=== PATIENT | female | born 1975 | race Caucasian/White ===

== ENCOUNTER 2019-08-28 08:54 | Emergency (ER) | payer BC ==
[2019-08-28] MEDS ORDERED: Morphine 4 MG/ML Syringe IVPUSH ONE (09:06)
[2019-08-28] MEDS ORDERED: Ondansetron 4 MG/2 ML SDV IVPUSH ONE (09:06)
[2019-08-28] MEDS ORDERED: Sodium Chloride 0.9% 2.5 ML Syringe FLUSH PRN (09:06)
[2019-08-28] MEDS ORDERED: Sodium Chloride 0.9% 10 ML Syringe FLUSH PRN (09:06)
[2019-08-28] MEDS ORDERED: Lactated Ringers 1,000 ML IV ONE (09:06)
--- NOTE | 2019-08-28 09:25 | EDM.PDOC ---
ED HPI GENERAL MEDICAL PROBLEM - General Chief Complaint: Flank Pain Stated Complaint: PAIN AROUND KIDNEY'S Time Seen by Provider: 08/28/19 09:00 Source of Information: Reports: Patient History Limitations: Reports: No Limitations - History of Present Illness INITIAL COMMENTS - FREE TEXT/NARRATIVE: 43-year-old female presents with abdominal pain. She complains of diffuse abdom inal "bloaty "discomfort for the last 2 weeks, associated with nonbilious, nonbloody vomiting. She started developing bilateral flank pain over the last couple days. She denies fever, chills, diarrhea. She was last sexually active in January. Her LMP was in January. ROS: A 10-point review of systems, other than pertinent positives and negatives as stated per HPI, is otherwise negative PHYSICAL EXAM General: AOx4, GCS = 15, No distress HEENT: dry mucous membrane Neck: supple, no meningismus, no Kernig or Brudzinski Cardiac: S1S2 RRR Respiratory: CTAB, no crackles or rales, no wheezing Abdomen: Soft, mild diffuse ttp. no rebound or guarding, nondistended, no pulsatile mass. Back: mild CVAT Bilateral. Musculoskeletal: NVI distally, no deformity Neuro: No focal deficits, CN 2 - 12 WNL. Left Flank Pain Score (Numeric/FACES): 3 - Related Data Allergies Allergy/AdvReac Type Severity Reaction Status Date / Time No Known Allergies Allergy Verified 11/07/16 22:43 Home Meds: Home Meds . 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 SENIOR GENETIC COUNSELOR History: x 1 - Infectious Disease History Infectious Disease History: Reports: Chicken Pox - Past Surgical History HEENT Surgical History: Reports: Tonsillectomy Dermatological Surgical History: Reports: Other (See Below) Social & Family History - Family History Family Medical History: Noncontributory Cardiac: Reports: High Cholesterol, Hypertension Endocrine/Metabolic: Reports: Diabetes, Type I - Tobacco Use Smoking Status *Q: Never Smoker - Caffeine Use Caffeine Use: Reports: None - Recreational Drug Use Recreational Drug Use: No ED ROS GENERAL - Review of Systems Review Of Systems: Comprehensive ROS is negative, except as noted in HPI. ED EXAM, GENERAL - Physical Exam Exam: See Below (see dictation) Course - Vital Signs Last Recorded V/S: Last Vital Signs Temp 97.0 F 08/28/19 09:11 Pulse 113 H 08/28/19 14:53 Resp 16 08/28/19 14:53 BP 135/78 08/28/19 14:53 Pulse Ox 96 08/28/19 14:53 - Orders/Labs/Meds Orders: Active Orders 24 hr Category Date Time Status Sodium Chloride 0.9% [Saline Flush] Med 08/28/19 09:06 Active 10 ml FLUSH ASDIRECTED PRN Sodium Chloride 0.9% [Saline Flush] Med 08/28/19 09:06 Active 2.5 ml FLUSH ASDIRECTED PRN Saline Lock Insert [OM.PC] Stat Oth 08/28/19 09:07 Ordered Medication Orders Sodium Chloride (Saline Flush) 10 ml FLUSH ASDIRECTED PRN PRN Reason: Keep Vein Open Sodium Chloride (Saline Flush) 2.5 ml FLUSH ASDIRECTED PRN PRN Reason: Keep Vein Open Labs: Laboratory Tests 08/28/19 08/28/19 08/28/19 Range/Units 09:35 09:35 09:35 WBC 14.46 H (4.0-11.0) K/uL RBC 4.33 (4.30-5.90) M/uL Hgb 13.5 (12.0-16.0) g/dL Hct 41.1 (36.0-46.0) % MCV 94.9 (80.0-98.0) fL MCH 31.2 (27.0-32.0) pg MCHC 32.8 (31.0-37.0) g/dL RDW Std Deviation 46.9 (28.0-62.0) fl RDW Coeff of Cinda 13 (11.0-15.0) % Plt Count 270 (150-400) K/uL MPV 11.00 (7.40-12.00) fL Neut % (Auto) 74.0 (48.0-80.0) % Lymph % (Auto) 19.6 (16.0-40.0) % [place] % (Auto) 5.9 (0.0-15.0) % Eos % (Auto) 0.4 (0.0-7.0) % Baso % (Auto) 0.1 (0.0-1.5) % Neut # (Auto) 10.7 H (1.4-5.7) K/uL Lymph # (Auto) 2.8 H (0.6-2.4) K/uL [place] # (Auto) 0.9 H (0.0-0.8) K/uL Eos # (Auto) 0.1 (0.0-0.7) K/uL Baso # (Auto) 0.0 (0.0-0.1) K/uL Nucleated RBC % 0.0 /100WBC Nucleated RBCs # 0 K/uL Sodium (136-145) mmol/L Potassium (3.5-5.1) mmol/L Chloride (98-107) mmol/L Carbon Dioxide (21.0-32.0) mmol/L BUN (7.0-18.0) mg/dL Creatinine (0.6-1.0) mg/dL Est Cr Clr Drug Dosing mL/min Estimated GFR (MDRD) ml/min Glucose (74-106) mg/dL Calcium (8.5-10.1) mg/dL Total Bilirubin (0.2-1.0) mg/dL AST (15-37) IU/L ALT (14-63) IU/L Alkaline Phosphatase (46-116) U/L Total Protein (6.4-8.2) g/dL Albumin (3.4-5.0) g/dL Globulin (2.6-4.0) g/dL Albumin/Globulin Ratio (0.9-1.6) Lipase (73-393) U/L HCG, Quant mIU/mL Urine Color YELLOW Urine Appearance CLEAR Urine pH 6.5 (5.0-8.0) Ur Specific [place] 1.025 (1.001-1.035) Urine Protein NEGATIVE (NEGATIVE) mg/dL Urine Glucose (UA) NEGATIVE (NEGATIVE) mg/dL Urine Ketones NEGATIVE (NEGATIVE) mg/dL Urine Occult Blood NEGATIVE (NEGATIVE) Urine Nitrite NEGATIVE (NEGATIVE) Urine Bilirubin NEGATIVE (NEGATIVE) Urine Urobilinogen 0.2 (<2.0) EU/dL Ur Leukocyte Esterase TRACE H (NEGATIVE) Urine RBC 0-1 (0-2/HPF) Urine WBC 0-2 (0-5/HPF) Ur Epithelial Cells FEW (NONE-FEW) Amorphous Sediment LIGHT (NEGATIVE) Urine Bacteria FEW (NEGATIVE) Urine Mucus LIGHT (NONE-MOD) Urine HCG, Qual POSITIVE (NEGATIVE) 08/28/19 08/28/19 Range/Units 10:14 10:14 WBC (4.0-11.0) K/uL RBC (4.30-5.90) M/uL Hgb (12.0-16.0) g/dL Hct (36.0-46.0) % MCV (80.0-98.0) fL MCH (27.0-32.0) pg MCHC (31.0-37.0) g/dL RDW Std Deviation (28.0-62.0) fl RDW Coeff of Cinda (11.0-15.0) % Plt Count (150-400) K/uL MPV (7.40-12.00) fL Neut % (Auto) (48.0-80.0) % Lymph % (Auto) (16.0-40.0) % [place] % (Auto) (0.0-15.0) % Eos % (Auto) (0.0-7.0) % Baso % (Auto) (0.0-1.5) % Neut # (Auto) (1.4-5.7) K/uL Lymph # (Auto) (0.6-2.4) K/uL [place] # (Auto) (0.0-0.8) K/uL Eos # (Auto) (0.0-0.7) K/uL Baso # (Auto) (0.0-0.1) K/uL Nucleated RBC % /100WBC Nucleated RBCs # K/uL Sodium 137 (136-145) mmol/L Potassium 4.1 (3.5-5.1) mmol/L Chloride 104 (98-107) mmol/L Carbon Dioxide 23.9 (21.0-32.0) mmol/L BUN 6 L (7.0-18.0) mg/dL Creatinine 0.6 (0.6-1.0) mg/dL Est Cr Clr Drug Dosing 97.59 mL/min Estimated GFR (MDRD) > 60.0 ml/min Glucose 96 (74-106) mg/dL Calcium 9.8 (8.5-10.1) mg/dL Total Bilirubin 0.2 (0.2-1.0) mg/dL AST 16 (15-37) IU/L ALT 21 (14-63) IU/L Alkaline Phosphatase 79 (46-116) U/L Total Protein 6.2 L (6.4-8.2) g/dL Albumin 2.5 L (3.4-5.0) g/dL Globulin 3.7 (2.6-4.0) g/dL Albumin/Globulin Ratio 0.7 L (0.9-1.6) Lipase 71 L (73-393) U/L HCG, Quant 11794.0 mIU/mL Urine Color Urine Appearance Urine pH (5.0-8.0) Ur Specific [place] (1.001-1.035) Urine Protein (NEGATIVE) mg/dL Urine Glucose (UA) (NEGATIVE) mg/dL Urine Ketones (NEGATIVE) mg/dL Urine Occult Blood (NEGATIVE) Urine Nitrite (NEGATIVE) Urine Bilirubin (NEGATIVE) Urine Urobilinogen (<2.0) EU/dL Ur Leukocyte Esterase (NEGATIVE) Urine RBC (0-2/HPF) Urine WBC (0-5/HPF) Ur Epithelial Cells (NONE-FEW) Amorphous Sediment (NEGATIVE) Urine Bacteria (NEGATIVE) Urine Mucus (NONE-MOD) Urine HCG, Qual (NEGATIVE) Meds: Medications Generic Name Dose Route Start Last Admin Trade Name Freq PRN Reason Stop Dose Admin Sodium Chloride 10 ml 08/28/19 09:06 Saline Flush FLUSH ASDIRECTED PRN Keep Vein Open Sodium Chloride 2.5 ml 08/28/19 09:06 Saline Flush FLUSH ASDIRECTED PRN Keep Vein Open Discontinued Medications Generic Name Dose Route Start Last Admin Trade Name Freq PRN Reason Stop Dose Admin Lactated Ringer's 1,000 mls @ 999 mls/hr 08/28/19 09:06 08/28/19 09:33 Ringers, Lactated IV 07/03/20 10:06 999 mls/hr .BOLUS ONE Administration Morphine Sulfate 4 mg 08/28/19 09:06 08/28/19 09:33 Morphine IVPUSH 08/28/19 09:07 4 mg ONETIME ONE Administration Ondansetron HCl 4 mg 08/28/19 09:06 08/28/19 09:33 Zofran IVPUSH 08/28/19 09:07 4 mg ONETIME ONE Administration - Re-Assessments/Exams Free Text/Narrative Re-Assessment/Exam: 08/28/19 14:54 Case discussed with of [facility], will order NST exam for her to determine disposition 08/28/19 15:04 OB team in the ER to get the patient to OB for NST exam. Departure - Departure Disposition: Home, Self-Care 01 Condition: Good Clinical Impression: Oligohydramnios, Third trimester - Discharge Information *PRESCRIPTION DRUG MONITORING PROGRAM REVIEWED*: Not Applicable *COPY OF PRESCRIPTION DRUG MONITORING REPORT IN PATIENT CECELIA: Not Applicable Instructions: Third Trimester of , [id number] Referrals: Brandon Haji MD [Primary Care Provider] - Forms: ED Department Discharge Additional Instructions: The following information is given to patients seen in the emergency department who are being discharged to home. This information is to outline your options for follow-up care. We provide all patients seen in our emergency department with a follow-up referral. The need for follow-up, as well as the timing and circumstances, are variable depending upon the specifics of your emergency department visit. If you don't have a primary care physician on staff, we will provide you with a referral. We always advise you to contact your personal physician following an emergency department visit to inform them of the circumstance of the visit and for follow-up with them and/or the need for any referrals to a consulting specialist. The emergency department will also refer you to a specialist when appropriate. This referral assures that you have the opportunity for follow-up care with a specialist. All of these measure are taken in an effort to provide you with optimal care, which includes your follow-up. Under all circumstances we always encourage you to contact your private physician who remains a resource for coordinating your care. When calling for follow-up care, please make the office aware that this follow-up is from your recent emergency room visit. If for any reason you are refused follow-up, please contact the [facility] Emergency Department at and asked to speak to the emergency department charge nurse. If you do not have a primary care doctor, please follow up with the clinics below within 3-5 days. [facility] [address] [place] [id number] [facility] [address] [place] [address] Sepsis Event Note (ED) - Evaluation Sepsis Screening Result: No Definite Risk - Focused Exam Vital Signs: Vital Signs Temp Pulse Resp BP Pulse Ox 08/28/19 14:53 113 H 16 135/78 96 08/28/19 12:15 96 16 121/70 98 08/28/19 10:17 86 16 115/73 97 08/28/19 09:11 97.0 F 99 18 127/85 100 - My Orders Last 24 Hours: My Active Orders 08/28/19 09:06 Sodium Chloride 0.9% [Saline Flush] 10 ml FLUSH ASDIRECTED PRN Sodium Chloride 0.9% [Saline Flush] 2.5 ml FLUSH ASDIRECTED PRN 08/28/19 09:07 Saline Lock Insert [OM.PC] Stat - Assessment/Plan Last 24 Hours: My Active Orders 08/28/19 09:06 Sodium Chloride 0.9% [Saline Flush] 10 ml FLUSH ASDIRECTED PRN Sodium Chloride 0.9% [Saline Flush] 2.5 ml FLUSH ASDIRECTED PRN 08/28/19 09:07 Saline Lock Insert [OM.PC] Stat
[2019-08-28 10:41] LABS: BLOOD UREA NITROGEN,BUN 6 mg/dL (7.0-18.0); CARBON DIOXIDE,CO2 23.9 mmol/L (21.0-32.0); CHLORIDE,CL 104 mmol/L (98-107); GLUCOSE RANDOM 96 mg/dL (74-106); LIPASE 71 U/L (73-393); POTASSIUM,K 4.1 mmol/L (3.5-5.1); SODIUM,NA 137 mmol/L (136-145)
--- NOTE | 2019-08-28 14:39 | US ---
Obstetrical ultrasound: Multiple real-time images were obtained transabdominally. Comparison: No previous study for current . Dates: Current ultrasound: [facility] 10/30/19, gestational age 31 weeks 0 days presentation: Breech Placenta: Anterior with no findings of placenta previa or abruption Amniotic fluid: EKTA 5.63 cm Anatomic survey: Intracranial: No discrete abnormality Intra-abdominal: No discrete abnormality Spine: No discrete abnormality Extremities: 4 extremities are present Cardiac (4 chamber view, RVOT and LVOT): Within normal limits Aortic arch: Unremarkable Cord insertion: Appears intact Three-vessel cord: Present Diaphragm: Appears intact Upper lip: Appears intact Maternal adnexa: Not evaluated Measurements: BPD: 7.34 cm - 29 weeks 3 days Head circumference: 29.12 cm - 32 weeks 0 days Abdominal circumference: 26.89 cm - 31 weeks 0 days Femur length: 6.08 cm - 31 weeks 4 days Estimated weight: 1713 g (3 lbs. 12 oz.) Heart rate: 125 bpm Impression: 1. Single intrauterine fetus currently breech in presentation. 2. Low amniotic fluid index compatible with oligohydramnios. 3. No other complicating process is appreciated on obstetrical ultrasound exam. Diagnostic code #3 This report was dictated in MDT
--- NOTE | 2019-08-28 14:42 | US ---
Abdominal ultrasound: Multiple real-time images of the abdomen were obtained. Liver is echogenic and mildly enlarged. Findings most likely represent fatty infiltration. Gallbladder contains no shadowing gallstones. No gallbladder wall thickening or biliary duct dilatation is seen. Visualized pancreas is within normal limits. Kidneys show no hydronephrosis or mass. Right kidney has a length of 10.8 cm and left kidney has a length of 11.9 cm. Spleen size is normal. Aorta shows no aneurysm. Inferior vena cava is patent. Impression: 1. Fatty infiltration within the liver. 2. No additional abnormality is appreciated on abdominal ultrasound exam. Diagnostic code #2 This report was dictated in MDT
[2019-08-28 14:54] VITALS: BP 135/78; PULSE 113
== END 2019-08-28 15:10 | disposition still patient (30) ==
LOC: MW.ED 08:54
DX: O41.03X0 Oligohydramnios, third trimester, not applicable or unspecified (principal)
CPT/HCPCS: 36415; 76700; 76805; 80053; 81001; 81025; 83690; 84702; 85025; 96361; 96374; 96375; 99284; J2270; J2405; J7120; 99283

== ENCOUNTER 2019-10-29 07:12 | Inpatient (IN) | payer BC ==
[2019-10-29] MEDS ORDERED: Tranexamic Acid 1,000 MG in Sodium Chloride 0.9% 100 ML IV PRN ×2 (07:30→12:27)
[2019-10-29] MEDS ORDERED: Water For Irrigation,Sterile 1,000 ML Container IRR PRN (07:30)
[2019-10-29] MEDS ORDERED: Methylergonovine 0.2 MG/1 ML Amp IM PRN ×2 (07:30→12:27)
[2019-10-29] MEDS ORDERED: Sodium Chloride 0.9% 10 ML Syringe FLUSH PRN (07:30)
[2019-10-29] MEDS ORDERED: Sodium Chloride 0.9% 10 ML SDV IV PRN (07:30)
[2019-10-29] MEDS ORDERED: Ondansetron 4 MG/2 ML SDV IVPUSH PRN ×2 (07:30→12:27)
[2019-10-29] MEDS ORDERED: Oxytocin/0.9 % Sodium Chloride 30 UNIT/500 ML BAG IV SCH ×2 (07:30→07:45)
[2019-10-29] MEDS ORDERED: Nalbuphine 10 MG/1 ML Vial IVPUSH PRN ×2 (07:30→12:24)
[2019-10-29] MEDS ORDERED: Carboprost Tromethamine 250 MCG/1 ML Amp IM PRN (07:30)
[2019-10-29] MEDS ORDERED: Sodium Chloride 0.9% 2.5 ML Syringe FLUSH PRN (07:30)
[2019-10-29] MEDS ORDERED: Lidocaine 1% 50 ML MDV INJECT PRN (07:30)
[2019-10-29] MEDS ORDERED: Misoprostol 200 MCG Tab PO PRN (07:30)
[2019-10-29] MEDS ORDERED: Terbutaline 1 MG/ML SDV SUBCUT PRN (07:35)
[2019-10-29] MEDS: Lactated Ringers 1,000 ML IV SCH ×2 (07:51→09:15)
[2019-10-29] MEDS ORDERED: Terbutaline 1 MG/ML SDV SUBCUT ONE (10:00)
[2019-10-29] MEDS ORDERED: Misoprostol 25 MCG (1/4 of 100 MCG) Tab VAG PRN ×2 (10:30→14:30)
[2019-10-29] MEDS ORDERED: Misoprostol 25 MCG (1/4 of 100 MCG) Tab PO ONE (10:30)
--- NOTE | 2019-10-29 10:55 | PCM.LDHP ---
L&D History of Present Illness - General Date of Service: 10/29/19 Admit Problem/Dx: Patient Status Order with Admit Dx/Problem 10/29/19 07:31 Patient Status [ADT] Routine Admission Diagnosis/Problem Admission Diagnosis/Problem 10/29/19 10:51 43yo EDC 11/04/2019 39 1/7wks. AMA, Breech will attempt version. A+, RI. GBS neg. Source of Information: Patient History Limitations: Reports: No Limitations - History of Present Illness Improves with: Reports: None Worsens with: Reports: None Associated Symptoms: Reports: N - Related Data Allergies/Adverse Reactions: Allergies Allergy/AdvReac Type Severity Reaction Status Date / Time No Known Allergies Allergy Verified 08/31/19 10:37 Home Medications: Home Meds Vitamin C 1 tab PO DAILY 08/31/19 [History] Vitamin D 1 tab PO DAILY 08/31/19 [History] Past Medical History HEENT History: Reports: Impaired Vision Other HEENT History: wears glasses Cardiovascular History: Reports: Other (See Below) Other Cardiovascular History: pt states heart races sometimes Gastrointestinal History: Reports: GERD 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 OB/BYN History: x 1 Musculoskeletal History: Reports: Other (See Below) Other Musculoskeletal History: Bunion removed from right foot Endocrine/Metabolic History: Reports: Diabetes, Gestational - Infectious Disease History Infectious Disease History: Reports: Chicken Pox - Past Surgical History HEENT Surgical History: Reports: Tonsillectomy GI Surgical History: Reports: None Endocrine Surgical History: Reports: None Dermatological Surgical History: Reports: Other (See Below) Social & Family History - Family History Family Medical History: Noncontributory Cardiac: Reports: High Cholesterol, Hypertension Endocrine/Metabolic: Reports: Diabetes, Type I - Tobacco Use Smoking Status *Q: Never Smoker Second Hand Smoke Exposure: No - Caffeine Use Caffeine Use: Reports: None - Recreational Drug Use Recreational Drug Use: No H&P Review of Systems - Review of Systems: Review Of Systems: See Below General: Reports: No Symptoms HEENT: Reports: No Symptoms Pulmonary: Reports: No Symptoms Cardiovascular: Reports: No Symptoms Gastrointestinal: Reports: No Symptoms Genitourinary: Reports: No Symptoms Musculoskeletal: Reports: No Symptoms Skin: Reports: No Symptoms Psychiatric: Reports: No Symptoms Neurological: Reports: No Symptoms Hematologic/Lymphatic: Reports: No Symptoms Immunologic: Reports: No Symptoms L&D Exam - Exam Exam: See Below - Vital Signs Weight: 88.451 kg - OB Specific Contraction Intensity: Mild Movement: Active Heart Tones: Present Heart Rate (FHR) Variability: Moderate (6-25 bmp) Presentation: Breech Estimated Weight: 3150 - Exam General: Alert, Oriented, Cooperative HEENT: Hearing Intact Lungs: Clear to Auscultation, Normal Respiratory Effort Cardiovascular: Regular Rate, Regular Rhythm GI/Abdominal Exam: Soft, Non-Tender, Pelvis Stable Rectal Exam: Deferred Back Exam: Full Range of Motion Extremities: Normal Inspection, Normal Range of Motion, Non-Tender, No Pedal Edema Skin: Warm, Dry, Intact Neurological: Reflexes Equal Bilateral, Normal Gait, Normal Speech, Normal Tone, Sensation Intact Psychiatric: Alert, Normal Affect, Normal Mood - Patient Data Lab Results Last 24 hrs: Laboratory Results - last 24 hr 10/29/19 10/29/19 10/29/19 Range/Units 07:51 07:51 08:35 WBC 11.96 H (4.0-11.0) K/uL RBC 4.51 (4.30-5.90) M/uL Hgb 14.0 (12.0-16.0) g/dL Hct 42.7 (36.0-46.0) % MCV 94.7 (80.0-98.0) fL MCH 31.0 (27.0-32.0) pg MCHC 32.8 (31.0-37.0) g/dL RDW Std Deviation 51.0 (28.0-62.0) fl RDW Coeff of Cinda 15 (11.0-15.0) % Plt Count 254 (150-400) K/uL MPV 10.60 (7.40-12.00) fL Nucleated RBC % 0.0 /100WBC Nucleated RBCs # 0 K/uL POC Glucose (60-110) mg/dL COVID-19 (ABDI) NEGATIVE (NEGATIVE) Blood Type A POSITIVE Antibody Screen NEGATIVE 10/29/19 Range/Units 10:09 WBC (4.0-11.0) K/uL RBC (4.30-5.90) M/uL Hgb (12.0-16.0) g/dL Hct (36.0-46.0) % MCV (80.0-98.0) fL MCH (27.0-32.0) pg MCHC (31.0-37.0) g/dL RDW Std Deviation (28.0-62.0) fl RDW Coeff of Cinda (11.0-15.0) % Plt Count (150-400) K/uL MPV (7.40-12.00) fL Nucleated RBC % /100WBC Nucleated RBCs # K/uL POC Glucose 82 (60-110) mg/dL COVID-19 (ABDI) (NEGATIVE) Blood Type Antibody Screen Result Diagrams: 10/29/19 07:51 - Problem List (1) AMA (advanced maternal age) multigravida 35+ SNOMED Code(s): 266361919 ICD Code: O09.529 - SUPERVISION OF ELDERLY MULTIGRAVIDA, UNSPECIFIED TRIMESTER Status: Acute Priority: High Current Visit: Yes Qualifiers: Trimester: third trimester Qualified Code(s): O09.523 - Supervision of elderly multigravida, third trimester (2) Breech presentation SNOMED Code(s): 8861778 ICD Code: O32.1XX0 - MATERNAL CARE FOR BREECH PRESENTATION, UNSP Status: Acute Priority: High Current Visit: Yes Qualifiers: Fetus number: single or unspecified fetus Qualified Code(s): O32.1XX0 - Maternal care for breech presentation, not applicable or unspecified Problem List Initiated/Reviewed/Updated: Yes Orders Last 24hrs: Active Orders 24 hr Category Date Time Status Patient Status [ADT] Routine ADT 10/29/19 07:31 Active Communication Order [RC] ASDIRECTED Care 10/29/19 07:35 Active Communication Order [RC] ASDIRECTED Care 10/29/19 07:35 Active Communication Order [RC] ASDIRECTED Care 10/29/19 07:35 Active Heart Tones [RC] INTERMITTENT Care 10/29/19 07:31 Active Non Stress Test [RC] PER UNIT ROUTINE Care 10/29/19 07:31 Active May Shower [RC] ASDIRECTED Care 10/29/19 07:31 Active Notify Provider [RC] PRN Care 10/29/19 07:31 Active Notify Provider [RC] PRN Care 10/29/19 07:35 Active Notify Provider [RC] PRN Care 10/29/19 07:35 Active Notify Provider [RC] STAT Care 10/29/19 07:35 Active Oxygen Therapy [RC] ASDIRECTED Care 10/29/19 07:35 Active Up ad Carmen [RC] ASDIRECTED Care 10/29/19 07:31 Active Vaginal Exam [RC] PRN Care 10/29/19 07:31 Active Vaginal Exam [RC] PRN Care 10/29/19 07:35 Active Vital Signs [RC] PER UNIT ROUTINE Care 10/29/19 07:31 Active Vital Signs [RC] PER UNIT ROUTINE Care 10/29/19 07:35 Active Regular Diet [DIET] Diet 10/29/19 Breakfast Active OB Ltd 1 or More Fetus [US] Routine Exams 10/29/19 09:40 Ordered RPR (SYPHILIS SERO) W/ RFLX [REF] Routine Lab 10/29/19 07:51 Received Carboprost Tromethamine [Hemabate DS] Med 10/29/19 07:30 Active 250 mcg IM ASDIRECTED PRN Lactated Ringers [Ringers, Lactated] 1,000 ml Med 10/29/19 07:30 Active IV ASDIRECTED Lidocaine 1% [Xylocaine 1%] Med 10/29/19 07:30 Active 50 ml INJECT ONETIME PRN Methylergonovine [Methergine] Med 10/29/19 07:30 Active 0.2 mg IM ASDIRECTED PRN Nalbuphine [Nubain] Med 10/29/19 07:30 Active 10 mg IVPUSH Q1H PRN Ondansetron [Zofran] Med 10/29/19 07:30 Active 4 mg IVPUSH Q6H PRN Oxytocin/0.9 % Sodium Chloride [Oxytocin 30 Unit/500 ML Med 10/29/19 07:30 Active -NS] 30 unit in 500 ml IV TITRATE Oxytocin/0.9 % Sodium Chloride [Oxytocin 30 Unit/500 ML Med 10/29/19 07:45 Active -NS] 30 unit in 500 ml IV TITRATE Sodium Chloride 0.9% [Normal Saline] Med 10/29/19 07:30 Active 10 ml IV ASDIRECTED PRN Sodium Chloride 0.9% [Saline Flush] Med 10/29/19 07:30 Active 10 ml FLUSH ASDIRECTED PRN Sodium Chloride 0.9% [Saline Flush] Med 10/29/19 07:30 Active 2.5 ml FLUSH ASDIRECTED PRN Terbutaline [Brethine] Med 10/29/19 07:35 Active 0.25 mg SUBCUT ASDIRECTED PRN Tranexamic Acid [Cyklokapron] 1,000 mg Med 10/29/19 07:30 Active Sodium Chloride 0.9% [Normal Saline] 100 ml IV ONETIME Water For Irrigation,Sterile [Sterile Water for Med 10/29/19 07:30 Active Irrigation] 1,000 ml IRR ASDIRECTED PRN miSOPROStoL [Cytotec] Med 10/29/19 07:30 Active 200 mcg PO ONETIME PRN miSOPROStoL [Cytotec] Med 10/29/19 10:30 Active 25 mcg VAG ONETIME PRN miSOPROStoL [Cytotec] Med 10/29/19 14:30 Active 25 mcg VAG Q4H PRN Scalp Electrode [WOMSER] Per Unit Routine Oth 10/29/19 07:31 Ordered Isolation [COMM] Routine Oth 10/29/19 08:42 Active Medication Administration Instruction [OM.PC] Q3H Oth 10/29/19 07:45 Ordered Peripheral IV Insertion Adult [OM.PC] Routine Oth 10/29/19 07:31 Ordered Resuscitation Status Routine Resus Stat 10/29/19 07:30 Ordered Medication Orders Carboprost Tromethamine (Hemabate Ds) 250 mcg IM ASDIRECTED PRN PRN Reason: Post Hemorrhage Oxytocin/Sodium Chloride (Oxytocin 30 Unit/500 Ml-Ns) 30 unit in 500 mls @ 999 mls/hr IV TITRATE [facility] Tranexamic Acid 1,000 mg/ (Sodium Chloride) 110 mls @ 660 mls/hr IV ONETIME PRN PRN Reason: Bleeding Lactated Ringer's (Ringers, Lactated) 1,000 mls @ 150 mls/hr IV ASDIRECTED ESAU Last Admin: 10/29/19 09:15 Dose: 200 mls/hr Documented by: Infusion: 10/29/19 08:52 Dose: 999 mls/hr Documented by: Admin: 10/29/19 07:51 Dose: 999 mls/hr Documented by: GRABIEL Oxytocin/Sodium Chloride (Oxytocin 30 Unit/500 Ml-Ns) 30 unit in 500 mls @ 2 mls/hr IV TITRATE ESAU; Protocol Lidocaine HCl (Xylocaine 1%) 50 ml INJECT ONETIME PRN PRN Reason: Laceration repair Methylergonovine Maleate (Methergine) 0.2 mg IM ASDIRECTED PRN PRN Reason: Post Hemorrhage Misoprostol (Cytotec) 200 mcg PO ONETIME PRN PRN Reason: Post Hemorrhage Misoprostol (Cytotec) 25 mcg VAG ONETIME PRN PRN Reason: Cervical Ripening Misoprostol (Cytotec) 25 mcg VAG Q4H PRN PRN Reason: Cervical Ripening Nalbuphine HCl (Nubain) 10 mg IVPUSH Q1H PRN PRN Reason: Pain (severe 7-10) Ondansetron HCl (Zofran) 4 mg IVPUSH Q6H PRN PRN Reason: Nausea/Vomiting Sodium Chloride (Saline Flush) 10 ml FLUSH ASDIRECTED PRN PRN Reason: Keep Vein Open Sodium Chloride (Saline Flush) 2.5 ml FLUSH ASDIRECTED PRN PRN Reason: Keep Vein Open Sodium Chloride (Normal Saline) 10 ml IV ASDIRECTED PRN PRN Reason: IV Use Sterile Water (Sterile Water For Irrigation) 1,000 ml IRR ASDIRECTED PRN PRN Reason: delivery Terbutaline Sulfate (Brethine) 0.25 mg SUBCUT ASDIRECTED PRN PRN Reason: Tacysystole Assessment/Plan Comment:: Version A: 43yo EDC 11/04/2019 39 1/7wks. AMA, Breech will attempt version. A+, RI. GBS neg. P: Epidural, will attempt version. OR prepared prn.
[2019-10-29] MEDS ORDERED: Lidocaine 2% 5 ML SDV ONE ×2 (11:03→11:25)
[2019-10-29] MEDS ORDERED: ceFAZolin/Dextrose,Iso-Osmotic 2 GM/50 ML Duplex Bag IV ONE (11:27)
[2019-10-29] MEDS ORDERED: Morphine PF 10 MG/10 ML SDV ONE (11:28)
[2019-10-29] MEDS ORDERED: Oxytocin 10 Units/1 ML SDV ONE (11:28)
[2019-10-29] MEDS ORDERED: ePHEDrine 50 MG/ML SDV ONE (11:43)
[2019-10-29] MEDS ORDERED: fentaNYL 100 MCG/2 ML SDV IVPUSH PRN (12:24)
[2019-10-29] MEDS ORDERED: Acetaminophen/oxyCODONE 325-5 MG Tab PO PRN ×3 (12:24→12:27)
[2019-10-29] MEDS ORDERED: Lanolin 100% Cream 7 GM Tube TOP PRN (12:27)
[2019-10-29] MEDS ORDERED: Oxytocin 10 Units/1 ML SDV IM PRN (12:27)
[2019-10-29] MEDS ORDERED: Misoprostol 200 MCG Tab RECTAL PRN (12:27)
[2019-10-29] MEDS ORDERED: diphenhydrAMINE 50 MG/ML SDV IVPUSH PRN (12:27)
[2019-10-29] MEDS ORDERED: Bisacodyl 10 MG Supp RECTAL PRN (12:27)
[2019-10-29] MEDS: Ketorolac 30 MG/ML SDV IVPUSH SCH ×2 (12:30→18:42)
[2019-10-29] MEDS ORDERED: Lactated Ringers 1,000 ML IV SCH (12:30)
--- NOTE | 2019-10-29 12:31 | PCM.OPNOTE ---
- General Post-Op/Procedure Note Date of Surgery/Procedure: 10/29/19 Operative Procedure(s): Primary C/section. Pre Op Diagnosis: [id number] Breech presentation. Post-Op Diagnosis: Same Anesthesia Technique: Epidural Primary Surgeon: Cecilio Meade Knee Bolter: Zora Orozco Knee Bolter: Ira Márquez EBL in mLs: 750 Complications: None Condition: Good
--- NOTE | 2019-10-29 13:18 | PCM.PREANE ---
Preanesthetic Assessment - Procedure Proposed Procedure: Epidural placement and dosing for external cephalic version - Anesthesia/Transfusion/Family Hx Anesthesia History: Prior Anesthesia Without Reaction Transfusion History: No Prior Transfusion(s) - Review of Systems General: No Symptoms Pulmonary: No Symptoms Cardiovascular: No Symptoms Gastrointestinal: No Symptoms Neurological: No Symptoms Other: Reports: None - Physical Assessment NPO Status Date: 10/28/19 NPO Status Time: 23:59 Vital Signs: Last Vital Signs Temp 36.1 C 10/29/19 12:48 Pulse 69 10/29/19 13:00 Resp 12 10/29/19 13:00 BP 90/51 L 10/29/19 13:00 Pulse Ox 100 10/29/19 13:00 Height: 5 ft 2 in Weight: 88.451 kg ASA Class: 2 Mental Status: Alert & Oriented x3 Airway Class: Mallampati = 1 Dentition: Reports: Normal Dentition Thyro-Mental Finger Breadths: 3 Mouth Opening Finger Breadths: 3 ROM/Head Extension: Full Lungs: Clear to Auscultation, Normal Respiratory Effort Cardiovascular: Regular Rate, Regular Rhythm - Lab Values: Laboratory Last Values WBC 11.96 K/uL (4.0-11.0) H 10/29/19 07:51 RBC 4.51 M/uL (4.30-5.90) 10/29/19 07:51 Hgb 14.0 g/dL (12.0-16.0) 10/29/19 07:51 Hct 42.7 % (36.0-46.0) 10/29/19 07:51 MCV 94.7 fL (80.0-98.0) 10/29/19 07:51 MCH 31.0 pg (27.0-32.0) 10/29/19 07:51 MCHC 32.8 g/dL (31.0-37.0) 10/29/19 07:51 RDW Std Deviation 51.0 fl (28.0-62.0) 10/29/19 07:51 RDW Coeff of Cinda 15 % (11.0-15.0) 10/29/19 07:51 Plt Count 254 K/uL (150-400) 10/29/19 07:51 MPV 10.60 fL (7.40-12.00) 10/29/19 07:51 Nucleated RBC % 0.0 /100WBC 10/29/19 07:51 Nucleated RBCs # 0 K/uL 10/29/19 07:51 POC Glucose 82 mg/dL (60-110) 10/29/19 10:09 COVID-19 (ABDI) NEGATIVE (NEGATIVE) 10/29/19 08:35 Blood Type A POSITIVE 10/29/19 07:51 Antibody Screen NEGATIVE 10/29/19 07:51 - Allergies Allergies/Adverse Reactions: Allergies Allergy/AdvReac Type Severity Reaction Status Date / Time No Known Allergies Allergy Verified 08/31/19 10:37 - Anesthesia Plan Free Text/Narrative:: Epidural placement and dosing for external cephalic version - Acknowledgements Anesthesia Type Planned: Epidural Pt an Appropriate Candidate for the Planned Anesthesia: Yes Alternatives and Risks of Anesthesia Discussed w Pt/Guardian: Yes Pt/Guardian Understands and Agrees with Anesthesia Plan: Yes PreAnesthesia Questionnaire HEENT History: Reports: Impaired Vision Other HEENT History: wears glasses Cardiovascular History: Reports: Other (See Below) Other Cardiovascular History: pt states heart races sometimes Respiratory History: Reports: None Gastrointestinal History: Reports: GERD Genitourinary History: Reports: None OVEREDGE SEWER History: Reports: : 2 Para: 1 LMP (Approximate): Other OB/BYN History: x 1 Musculoskeletal History: Reports: Other (See Below) Other Musculoskeletal History: Bunion removed from right foot Neurological History: Reports: None Psychiatric History: Reports: None Endocrine/Metabolic History: Reports: Diabetes, Gestational Hematologic History: Reports: None Immunologic History: Reports: None Oncologic (Cancer) History: Reports: None Dermatologic History: Reports: None - Infectious Disease History Infectious Disease History: Reports: Chicken Pox - Past Surgical History HEENT Surgical History: Reports: Tonsillectomy Other Musculoskeletal Surgeries/Procedures:: Right foot Dermatological Surgical History: Reports: Other (See Below) - SUBSTANCE USE Smoking Status *Q: Never Smoker Second Hand Smoke Exposure: No Recreational Drug Use History: No - HOME MEDS Home Medications: Home Meds Vitamin C 1 tab PO DAILY 08/31/19 [History] Vitamin D 1 tab PO DAILY 08/31/19 [History] - CURRENT (IN HOUSE) MEDS Current Meds: Current Medications Bisacodyl (Dulcolax) 10 mg RECTAL ONETIME PRN PRN Reason: Constipation Carboprost Tromethamine (Hemabate Ds) 250 mcg IM ASDIRECTED PRN PRN Reason: Post Hemorrhage Diphenhydramine HCl (Benadryl) 25 mg IVPUSH Q6H PRN PRN Reason: Itching or Nausea Docusate Sodium (Colace) 100 mg PO BID [facility] Emollient Ointment (Lansinoh Hpa) 0 gm TOP ASDIRECTED PRN PRN Reason: Sore Nipples Fentanyl (Sublimaze) 50 mcg IVPUSH Q5M PRN PRN Reason: Pain (severe 7-10) Stop: 10/30/19 12:24 Oxytocin/Sodium Chloride (Oxytocin 30 Unit/500 Ml-Ns) 30 unit in 500 mls @ 999 mls/hr IV TITRATE [facility] Tranexamic Acid 1,000 mg/ (Sodium Chloride) 110 mls @ 660 mls/hr IV ONETIME PRN PRN Reason: Bleeding Lactated Ringer's (Ringers, Lactated) 1,000 mls @ 150 mls/hr IV ASDIRECTED [facility] Last Admin: 10/29/19 09:15 Dose: 200 mls/hr Documented by: Oxytocin/Sodium Chloride (Oxytocin 30 Unit/500 Ml-Ns) 30 unit in 500 mls @ 2 mls/hr IV TITRATE [facility]; Protocol Lactated Ringer's (Ringers, Lactated) 1,000 mls @ 125 mls/hr IV ASDIRECTED [facility] Tranexamic Acid 1,000 mg/ (Sodium Chloride) 110 mls @ 660 mls/hr IV ONETIME PRN PRN Reason: Bleeding Ibuprofen (Motrin) 800 mg PO Q8H PRN PRN Reason: mild pain or fever Ketorolac Tromethamine (Toradol) 30 mg IVPUSH Q6H [facility] Stop: 10/30/19 12:31 Lidocaine HCl (Xylocaine 1%) 50 ml INJECT ONETIME PRN PRN Reason: Laceration repair Methylergonovine Maleate (Methergine) 0.2 mg IM ASDIRECTED PRN PRN Reason: Post Hemorrhage Methylergonovine Maleate (Methergine) 0.2 mg IM ONETIME PRN PRN Reason: Excessive Vaginal Bleeding Misoprostol (Cytotec) 200 mcg PO ONETIME PRN PRN Reason: Post Hemorrhage Misoprostol (Cytotec) 25 mcg VAG ONETIME PRN PRN Reason: Cervical Ripening Misoprostol (Cytotec) 25 mcg VAG Q4H PRN PRN Reason: Cervical Ripening Misoprostol (Cytotec) 1,000 mcg RECTAL ONETIME PRN PRN Reason: excessive bleeding Nalbuphine HCl (Nubain) 10 mg IVPUSH Q1H PRN PRN Reason: Pain (severe 7-10) Nalbuphine HCl (Nubain) 2.5 mg IVPUSH Q3H PRN PRN Reason: Pruritis Stop: 10/30/19 12:25 Ondansetron HCl (Zofran) 4 mg IVPUSH Q6H PRN PRN Reason: Nausea/Vomiting Ondansetron HCl (Zofran) 4 mg IVPUSH Q4H PRN PRN Reason: Nausea/Vomiting Oxycodone/Acetaminophen (Percocet 325-5 Mg) 1 tab PO ONETIME PRN PRN Reason: Pain (moderate 4-6) Oxycodone/Acetaminophen (Percocet 325-5 Mg) 1 tab PO Q4H PRN PRN Reason: Pain (moderate 4-6) Oxycodone/Acetaminophen (Percocet 325-5 Mg) 2 tab PO Q4H PRN PRN Reason: Pain (moderate 4-6) Oxytocin (Pitocin) 10 unit IM ASDIRECTED PRN PRN Reason: Excessive Vaginal Bleeding Sodium Chloride (Saline Flush) 10 ml FLUSH ASDIRECTED PRN PRN Reason: Keep Vein Open Sodium Chloride (Saline Flush) 2.5 ml FLUSH ASDIRECTED PRN PRN Reason: Keep Vein Open Sodium Chloride (Normal Saline) 10 ml IV ASDIRECTED PRN PRN Reason: IV Use Sterile Water (Sterile Water For Irrigation) 1,000 ml IRR ASDIRECTED PRN PRN Reason: delivery Terbutaline Sulfate (Brethine) 0.25 mg SUBCUT ASDIRECTED PRN PRN Reason: Tacysystole Discontinued Medications Cefazolin Sodium/Dextrose (Ancef) Confirm Administered Dose 2 gm IV .STK-MED ONE Stop: 10/29/19 11:28 Ephedrine Sulfate (Ephedrine Sulfate) Confirm Administered Dose 50 mg .ROUTE .STK-MED ONE Stop: 10/29/19 11:44 Lidocaine (Xylocaine-Mpf 2%) Confirm Administered Dose 15 ml .ROUTE .STK-MED ONE Stop: 10/29/19 11:04 Lidocaine (Xylocaine-Mpf 2%) Confirm Administered Dose 5 ml .ROUTE .STK-MED ONE Stop: 10/29/19 11:26 Misoprostol (Cytotec) 25 mcg PO ONETIME ONE Stop: 10/29/19 10:31 Morphine Sulfate (Duramorph Pf) Confirm Administered Dose 10 mg .ROUTE .STK-MED ONE Stop: 10/29/19 11:29 Oxytocin (Pitocin) Confirm Administered Dose 20 unit .ROUTE .STK-MED ONE Stop: 10/29/19 11:29 Terbutaline Sulfate (Brethine) 0.25 mg SUBCUT ONETIME ONE Stop: 10/29/19 10:01
--- NOTE | 2019-10-29 13:32 | PCM.POSTAN ---
POST ANESTHESIA ASSESSMENT - MENTAL STATUS Mental Status: Alert, Oriented - VITAL SIGNS Vital Signs: Last Vital Signs Temp 36.1 C 10/29/19 12:48 Pulse 72 10/29/19 13:20 Resp 19 10/29/19 13:20 BP 98/54 L 10/29/19 13:20 Pulse Ox 96 10/29/19 13:20 - RESPIRATORY Respiratory Status: Respiratory Rate WNL, Airway Patent, O2 Saturation Stable - CARDIOVASCULAR CV Status: Pulse Rate WNL, Blood Pressure Stable - GASTROINTESTINAL GI Status: No Symptoms - PAIN Pain Score: 2 - POST OP HYDRATION Hydration Status: Adequate & Stable - OBSERVATIONS Free Text/Narrative:: No anesthesia concerns or complications noted.
--- NOTE | 2019-10-29 14:14 | US ---
Limited obstetrical ultrasound: Multiple real-time images were obtained transabdominally. presentation: Persistent breech Amniotic fluid: EKTA is low at 4.55 cm Heart rate: 101 bpm Impression: 1. Persistent breech presentation. 2. Low EKTA of 4.55 cm 3. Heart rate of 101 bpm Diagnostic code #3 This report was dictated in MDT
--- NOTE | 2019-10-29 14:49 | OR ---
SURGEON: Cecilio Meade MD DATE OF PROCEDURE: 10/29/2019 PREOPERATIVE DIAGNOSES: Intrauterine at 39+ weeks, breech presentation. POSTOPERATIVE DIAGNOSES: Intrauterine at 39+ weeks, breech presentation. OPERATION PERFORMED: External cephalic version under epidural anesthesia failed and then proceeded to primary low transverse section. PRIMARY SURGEON: Cecilio Meade MD [employer]ER: Zora Orozco CNM, and Ira Márquez. ANESTHESIA: Epidural. ESTIMATED BLOOD LOSS: 750 mL. COMPLICATIONS: None. INDICATIONS FOR SURGERY: This patient is 43. She is followed in our clinic. She is found to be a breech presentation. This is her second child. She is 39+ weeks. She is admitted to Labor and Delivery with the intention of attempting external cephalic version under epidural anesthesia. However, the ultrasound in the labor room shows breech presentation, but there is low amniotic fluid. I attempted to do external version, but that was unsuccessful, and the patient did not tolerate it very well, so we abandoned the procedure, and we proceeded to a primary low transverse section. PROCEDURE IN DETAIL: The patient was brought to the OR, properly identified. After adequate level of epidural anesthesia with a Copeland catheter in the bladder, the patient prepped and draped in sterile fashion as usual. Low transverse Pfannenstiel skin incision done. Timmy fascia and rectus fascia were opened in direction of the incision. The two recti muscles were and the peritoneal cavity was entered. Bladder flap was raised in the usual manner pushing the bladder away from the lower uterine segment. Low transverse uterine incision was done and extended manually with the hand. Fetus was in a coco breech presentation, delivered without any problem. The fetus cried immediately. score later on reported to be 8 and 9. The weight is not available. The placenta delivered spontaneous, complete, and intact and repair of the lower uterine segment was done with 2-0 Vicryl continuous interlocking in two layers. Reperitonealization with 3-0 Vicryl continuous was done. The peritoneal cavity evacuated completely from all blood and blood clot and closed with 3-0 Vicryl continuous. The rectus fascia was closed with #1 PDS double strand continuous, Timmy fascia with 3-0 Vicryl continuous, the skin closed with 3-0 Stratafix in a subcuticular fashion. Instrument and sponge count was correct. The patient tolerated the procedure well, went to recovery room in stable general condition. TISHA / ISSA /[id number]
[2019-10-29] MEDS: Docusate Sodium 100 MG Cap PO SCH (21:22)
[2019-10-30] MEDS: Ketorolac 30 MG/ML SDV IVPUSH SCH ×3 (00:27→12:35)
--- NOTE | 2019-10-30 09:38 | PCM48HPAN ---
Post Anesthesia Note - EVALUATION WITHIN 48HRS OF ANESTHETIC Vital Signs in Normal Range: Yes Patient Participated in Evaluation: Yes Respiratory Function Stable: Yes Airway Patent: Yes Cardiovascular Function Stable: Yes Hydration Status Stable: Yes Pain Control Satisfactory: Yes Nausea and Vomiting Control Satisfactory: Yes Mental Status Recovered: Yes Vital Signs: Last Vital Signs Temp 36.1 C 10/30/19 04:12 Pulse 79 10/30/19 05:05 Resp 16 10/30/19 05:05 BP 103/60 10/30/19 04:12 Pulse Ox 95 10/30/19 05:05 - COMMENTS/OBSERVATIONS Free Text/Narrative:: No anesthesia complications or concerns noted.
[2019-10-30] MEDS: Docusate Sodium 100 MG Cap PO SCH ×2 (10:00→21:45)
--- NOTE | 2019-10-30 10:03 | PCM.PNPP ---
- General Info Date of Service: 10/30/19 Functional Status: Reports: Pain Controlled - Review of Systems General: Reports: No Symptoms HEENT: Reports: No Symptoms Pulmonary: Reports: No Symptoms Cardiovascular: Reports: No Symptoms Gastrointestinal: Reports: No Symptoms Genitourinary: Reports: No Symptoms Musculoskeletal: Reports: No Symptoms Skin: Reports: No Symptoms Neurological: Reports: No Symptoms Psychiatric: Reports: No Symptoms - General Info Date of Service: 10/30/19 - Patient Data Vital Signs - Most Recent: Last Vital Signs Temp 36.1 C 10/30/19 04:12 Pulse 69 10/30/19 07:25 Resp 16 10/30/19 07:25 BP 108/64 10/30/19 07:25 Pulse Ox 96 10/30/19 07:25 Weight - Most Recent: 88.451 kg I&O - Last 24 Hours: Intake & Output 10/29/19 10/30/19 10/30/19 22:59 06:59 14:59 Output Total 1400 100 Balance -1400 -100 Lab Results - Last 24 Hours: Laboratory Results - last 24 hr 10/29/19 10/30/19 Range/Units 10:09 05:33 Hgb 12.0 (12.0-16.0) g/dL Hct 36.7 (36.0-46.0) % POC Glucose 82 (60-110) mg/dL Med Orders - Current: Current Medications Bisacodyl (Dulcolax) 10 mg RECTAL ONETIME PRN PRN Reason: Constipation Carboprost Tromethamine (Hemabate Ds) 250 mcg IM ASDIRECTED PRN PRN Reason: Post Hemorrhage Diphenhydramine HCl (Benadryl) 25 mg IVPUSH Q6H PRN PRN Reason: Itching or Nausea Docusate Sodium (Colace) 100 mg PO BID ON [facility] Last Admin: 10/30/19 10:00 Dose: 100 mg Documented by: Emollient Ointment (Lansinoh Hpa) 0 gm TOP ASDIRECTED PRN PRN Reason: Sore Nipples Fentanyl (Sublimaze) 50 mcg IVPUSH Q5M PRN PRN Reason: Pain (severe 7-10) Stop: 10/30/19 12:24 Oxytocin/Sodium Chloride (Oxytocin 30 Unit/500 Ml-Ns) 30 unit in 500 mls @ 999 mls/hr IV TITRATE ON LICENSE OF [facility] Tranexamic Acid 1,000 mg/ (Sodium Chloride) 110 mls @ 660 mls/hr IV ONETIME PRN PRN Reason: Bleeding Lactated Ringer's (Ringers, Lactated) 1,000 mls @ 150 mls/hr IV ASDIRECTED ON [facility] OF [facility] Last Admin: 10/29/19 09:15 Dose: 200 mls/hr Documented by: Oxytocin/Sodium Chloride (Oxytocin 30 Unit/500 Ml-Ns) 30 unit in 500 mls @ 2 mls/hr IV TITRATE ON [facility]; Protocol Lactated Ringer's (Ringers, Lactated) 1,000 mls @ 125 mls/hr IV ASDIRECTED ON [facility] OF [facility] Tranexamic Acid 1,000 mg/ (Sodium Chloride) 110 mls @ 660 mls/hr IV ONETIME PRN PRN Reason: Bleeding Ibuprofen (Motrin) 800 mg PO Q8H PRN PRN Reason: mild pain or fever Ketorolac Tromethamine (Toradol) 30 mg IVPUSH Q6H ON [facility] OF [facility] Stop: 10/30/19 12:31 Last Admin: 10/30/19 06:32 Dose: 30 mg Documented by: Lidocaine HCl (Xylocaine 1%) 50 ml INJECT ONETIME PRN PRN Reason: Laceration repair Methylergonovine Maleate (Methergine) 0.2 mg IM ASDIRECTED PRN PRN Reason: Post Hemorrhage Methylergonovine Maleate (Methergine) 0.2 mg IM ONETIME PRN PRN Reason: Excessive Vaginal Bleeding Misoprostol (Cytotec) 200 mcg PO ONETIME PRN PRN Reason: Post Hemorrhage Misoprostol (Cytotec) 25 mcg VAG ONETIME PRN PRN Reason: Cervical Ripening Misoprostol (Cytotec) 25 mcg VAG Q4H PRN PRN Reason: Cervical Ripening Misoprostol (Cytotec) 1,000 mcg RECTAL ONETIME PRN PRN Reason: excessive bleeding Nalbuphine HCl (Nubain) 10 mg IVPUSH Q1H PRN PRN Reason: Pain (severe 7-10) Nalbuphine HCl (Nubain) 2.5 mg IVPUSH Q3H PRN PRN Reason: Pruritis Stop: 10/30/19 12:25 Ondansetron HCl (Zofran) 4 mg IVPUSH Q6H PRN PRN Reason: Nausea/Vomiting Ondansetron HCl (Zofran) 4 mg IVPUSH Q4H PRN PRN Reason: Nausea/Vomiting Oxycodone/Acetaminophen (Percocet 325-5 Mg) 1 tab PO ONETIME PRN PRN Reason: Pain (moderate 4-6) Oxycodone/Acetaminophen (Percocet 325-5 Mg) 1 tab PO Q4H PRN PRN Reason: Pain (moderate 4-6) Oxycodone/Acetaminophen (Percocet 325-5 Mg) 2 tab PO Q4H PRN PRN Reason: Pain (moderate 4-6) Oxytocin (Pitocin) 10 unit IM ASDIRECTED PRN PRN Reason: Excessive Vaginal Bleeding Sodium Chloride (Saline Flush) 10 ml FLUSH ASDIRECTED PRN PRN Reason: Keep Vein Open Sodium Chloride (Saline Flush) 2.5 ml FLUSH ASDIRECTED PRN PRN Reason: Keep Vein Open Sodium Chloride (Normal Saline) 10 ml IV ASDIRECTED PRN PRN Reason: IV Use Sterile Water (Sterile Water For Irrigation) 1,000 ml IRR ASDIRECTED PRN PRN Reason: delivery Terbutaline Sulfate (Brethine) 0.25 mg SUBCUT ASDIRECTED PRN PRN Reason: Tacysystole Discontinued Medications Cefazolin Sodium/Dextrose (Ancef) Confirm Administered Dose 2 gm IV .STK-MED ONE Stop: 10/29/19 11:28 Ephedrine Sulfate (Ephedrine Sulfate) Confirm Administered Dose 50 mg .ROUTE .STK-MED ONE Stop: 10/29/19 11:44 Lidocaine (Xylocaine-Mpf 2%) Confirm Administered Dose 15 ml .ROUTE .STK-MED ONE Stop: 10/29/19 11:04 Lidocaine (Xylocaine-Mpf 2%) Confirm Administered Dose 5 ml .ROUTE .STK-MED ONE Stop: 10/29/19 11:26 Misoprostol (Cytotec) 25 mcg PO ONETIME ONE Stop: 10/29/19 10:31 Morphine Sulfate (Duramorph Pf) Confirm Administered Dose 10 mg .ROUTE .STK-MED ONE Stop: 10/29/19 11:29 Oxytocin (Pitocin) Confirm Administered Dose 20 unit .ROUTE .STK-MED ONE Stop: 10/29/19 11:29 Terbutaline Sulfate (Brethine) 0.25 mg SUBCUT ONETIME ONE Stop: 10/29/19 10:01 - Infant Interaction Infant Disposition, : [place] in Room with Family Infant Interaction: Holding Infant Infant Feeding: Attempted ; Nursed Fair/Poor Support Person: Mother - Recovery Exam Fundal Tone: Firm Fundal Level: At Umbilicus Fundal Placement: Midline Lochia Amount: Scant Lochia Color: Rubra/Red Perineum Description: Intact, Minimal Bruising/Swelling Episiotomy/Laceration: None Bladder Status: Indwelling Catheter in Place Urinary Elimination: Indwelling Catheter - Exam General: Alert, Oriented HEENT: Pupils Equal Neck: Supple Lungs: Clear to Auscultation, Normal Respiratory Effort Cardiovascular: Regular Rate, Regular Rhythm GI/Abdominal Exam: Normal Bowel Sounds, Soft, Non-Tender, No Organomegaly, No Distention, No Abnormal Bruit, No Mass, Pelvis Stable Extremities: Normal Inspection, Normal Range of Motion, Non-Tender, No Pedal Edema, Normal Capillary Refill Skin: Warm, Dry, Intact Wound/Incisions: Healing Well Neurological: No New Focal Deficit Psy/Mental Status: Alert, Normal Affect, Normal Mood - Problem List Review Problem List Initiated/Reviewed/Updated: Yes - My Orders Last 24 Hours: My Active Orders 10/29/19 10:30 miSOPROStoL [Cytotec] 25 mcg VAG ONETIME PRN 10/29/19 12:27 Patient Status [ADT] Routine Ambulate [RC] PER UNIT ROUTINE Communication Order [RC] PER UNIT ROUTINE Communication Order [RC] PER UNIT ROUTINE Communication Order [RC] Per Unit Routine May Shower [RC] ASDIRECTED RT Incentive Spirometry [RC] Q2HWA Vital Signs [RC] PER UNIT ROUTINE Acetaminophen/oxyCODONE [Percocet 325-5 MG] 1 tab PO Q4H PRN Acetaminophen/oxyCODONE [Percocet 325-5 MG] 2 tab PO Q4H PRN Ibuprofen [Motrin] 800 mg PO Q8H PRN Lanolin [Lansinoh HPA] See Dose Instructions TOP ASDIRECTED PRN Methylergonovine [Methergine] 0.2 mg IM ONETIME PRN Ondansetron [Zofran] 4 mg IVPUSH Q4H PRN Oxytocin [Pitocin] 10 unit IM ASDIRECTED PRN Tranexamic Acid [Cyklokapron] 1,000 mg Sodium Chloride 0.9% [Normal Saline] 100 ml IV ONETIME bisacodyL [Dulcolax] 10 mg RECTAL ONETIME PRN diphenhydrAMINE [Benadryl] 25 mg IVPUSH Q6H PRN miSOPROStoL [Cytotec] 1,000 mcg RECTAL ONETIME PRN Assess Lochia [WOMSER] Per Unit Routine Assess Uterine Involution [WOMSER] Per Unit Routine Breast Pump [WOMSER] Per Unit Routine Peripheral IV Discontinue [OM.PC] Routine Sequential Compression Device [OM.PC] Per Unit Routine 10/29/19 12:28 Antiembolic Devices [RC] PER UNIT ROUTINE 10/29/19 12:30 Ketorolac [Toradol] 30 mg IVPUSH Q6H Lactated Ringers [Ringers, Lactated] 1,000 ml IV ASDIRECTED 10/29/19 14:30 miSOPROStoL [Cytotec] 25 mcg VAG Q4H PRN 10/29/19 21:00 Docusate Sodium [Colace] 100 mg PO BID - Assessment Assessment:: Status post section for breech presentation the patient is doing well ambulatory incision is clean and dry and she is on regular diet - Plan Plan:: Version A: 43yo EDC 11/04/2019 39 1/7wks. AMA, Breech will attempt version. A+, RI. GBS neg. P: Epidural, will attempt version. OR prepared prn. 10/30/19 Patient will be discharged home with a regular post section instructions
[2019-10-31] MEDS: Ibuprofen 800 MG Tab PO PRN ×2 (01:53→13:18)
--- NOTE | 2019-10-31 06:12 | PCM.DCSUM1 ---
Discharge Summary - Hospital Course Free Text/Narrative:: Sofi is a 44 yo PPD2 S/P P LTCS at 39.1 weeks gestation with spinal analgesia. A pos, RI, GBS neg. Hemodynamically stable, afebrile. Patient ambulating, eating, hydrating, voiding, and feeding NBF independently and without difficulty. well and without issues. Pain moderately controlled, use of PO analgesia reinforced, patient verbalizes understanding. Moderate vaginal bleeding, firm @U. Incision clean, dry, approximated. Old serosanginous drainage noted. Patient verbalizes desire to be discharged home today. Diagnosis: Stroke: No - Discharge Data Discharge Date: 10/31/19 Discharge Disposition: Home, Self-Care 01 Condition: Good - Referral to Home Health Primary Care Physician: PCP None - Discharge Diagnosis/Problem(s) (1) Delivery by section SNOMED Code(s): 227536286 ICD Code: [id number] - Status: Acute Priority: High Current Visit: Yes - Patient Summary/Data Operative Procedure(s) Performed: Primary C/section. - Patient Instructions Diet: Usual Diet as Tolerated, Drink 8-10+ Glasses/Day Activity: As Tolerated, No Strenuous Activities Driving: May Drive Today Driving, Other: Sitz baths for perineal comfort Showering/Bathing: May Shower Notify Provider of: Fever, Increased Pain, Swelling and Redness, Drainage, Nausea and/or Vomiting - Discharge Plan *PRESCRIPTION DRUG MONITORING PROGRAM REVIEWED*: No *COPY OF PRESCRIPTION DRUG MONITORING REPORT IN PATIENT CECELIA: No Prescriptions/Med Rec: Ibuprofen [Motrin] 800 mg PO Q8H PRN #90 tablet PRN Reason: mild pain or fever Acetaminophen/oxyCODONE [Percocet 325-5 MG] 1 - 2 tab PO Q4HR PRN #30 tablet PRN Reason: Pain (Moderate 4-6) Home Medications: Home Meds Vitamin C 1 tab PO DAILY 08/31/19 [History] Vitamin D 1 tab PO DAILY 08/31/19 [History] Acetaminophen/oxyCODONE [Percocet 325-5 MG] 1 - 2 tab PO Q4HR PRN #30 tablet 10/31/19 [Rx] Ibuprofen [Motrin] 800 mg PO Q8H PRN #90 tablet 10/31/19 [Rx] Oxygen Therapy Mode: Room Air Referrals: Richmond Dumont [Ordering Only Provider] - Cecilio Meade MD [Physician] - (1 week: 11/04/19 @ 3:15pm with Dr Meade 6 week: 12/10/19 @ 1:30 pm with Zora Orozco CNM) - Discharge Summary/Plan Comment DC Time >30 min.: Yes (Today) - General Info Date of Service: 10/31/19 Admission Dx/Problem (Free Text: Patient Status Order with Admit Dx/Problem 10/29/19 07:31 Patient Status [ADT] Routine Admission Diagnosis/Problem Admission Diagnosis/Problem 10/29/19 10:51 43yo EDC 11/04/2019 39 1/7wks. AMADaniel will attempt version. A+, RI. GBS neg. Functional Status: Reports: Pain Controlled - Review of Systems General: Reports: No Symptoms HEENT: Reports: No Symptoms Pulmonary: Reports: No Symptoms Cardiovascular: Reports: No Symptoms Gastrointestinal: Reports: No Symptoms Genitourinary: Reports: No Symptoms Musculoskeletal: Reports: No Symptoms Skin: Reports: No Symptoms Neurological: Reports: No Symptoms Psychiatric: Reports: No Symptoms - Patient Data Vitals - Most Recent: Last Vital Signs Temp 97.6 F 10/31/19 04:00 Pulse 71 10/31/19 04:00 Resp 14 10/31/19 04:00 BP 114/68 10/31/19 04:00 Pulse Ox 95 10/31/19 04:00 Weight - Most Recent: 195 lb Lab Results - Last 24 hrs: Laboratory Results - last 24 hr 10/29/19 10/30/19 Range/Units 07:51 05:33 Hgb 12.0 (12.0-16.0) g/dL Hct 36.7 (36.0-46.0) % RPR Non-Reac (Non-Reac) Med Orders - Current: Current Medications Bisacodyl (Dulcolax) 10 mg RECTAL ONETIME PRN PRN Reason: Constipation Carboprost Tromethamine (Hemabate Ds) 250 mcg IM ASDIRECTED PRN PRN Reason: Post Hemorrhage Diphenhydramine HCl (Benadryl) 25 mg IVPUSH Q6H PRN PRN Reason: Itching or Nausea Docusate Sodium (Colace) 100 mg PO BID ESAU Last Admin: 10/30/19 21:45 Dose: 100 mg Documented by: Emollient Ointment (Lansinoh Hpa) 0 gm TOP ASDIRECTED PRN PRN Reason: Sore Nipples Oxytocin/Sodium Chloride (Oxytocin 30 Unit/500 Ml-Ns) 30 unit in 500 mls @ 999 mls/hr IV TITRATE ESAU Tranexamic Acid 1,000 mg/ (Sodium Chloride) 110 mls @ 660 mls/hr IV ONETIME PRN PRN Reason: Bleeding Lactated Ringer's (Ringers, Lactated) 1,000 mls @ 150 mls/hr IV ASDIRECTED [facility] Last Admin: 10/29/19 09:15 Dose: 200 mls/hr Documented by: Oxytocin/Sodium Chloride (Oxytocin 30 Unit/500 Ml-Ns) 30 unit in 500 mls @ 2 mls/hr IV TITRATE ESAU; Protocol Lactated Ringer's (Ringers, Lactated) 1,000 mls @ 125 mls/hr IV ASDIRECTED [facility] Tranexamic Acid 1,000 mg/ (Sodium Chloride) 110 mls @ 660 mls/hr IV ONETIME PRN PRN Reason: Bleeding Ibuprofen (Motrin) 800 mg PO Q8H PRN PRN Reason: mild pain or fever Last Admin: 10/31/19 01:53 Dose: 800 mg Documented by: Lidocaine HCl (Xylocaine 1%) 50 ml INJECT ONETIME PRN PRN Reason: Laceration repair Methylergonovine Maleate (Methergine) 0.2 mg IM ASDIRECTED PRN PRN Reason: Post Hemorrhage Methylergonovine Maleate (Methergine) 0.2 mg IM ONETIME PRN PRN Reason: Excessive Vaginal Bleeding Misoprostol (Cytotec) 200 mcg PO ONETIME PRN PRN Reason: Post Hemorrhage Misoprostol (Cytotec) 25 mcg VAG ONETIME PRN PRN Reason: Cervical Ripening Misoprostol (Cytotec) 25 mcg VAG Q4H PRN PRN Reason: Cervical Ripening Misoprostol (Cytotec) 1,000 mcg RECTAL ONETIME PRN PRN Reason: excessive bleeding Nalbuphine HCl (Nubain) 10 mg IVPUSH Q1H PRN PRN Reason: Pain (severe 7-10) Ondansetron HCl (Zofran) 4 mg IVPUSH Q6H PRN PRN Reason: Nausea/Vomiting Ondansetron HCl (Zofran) 4 mg IVPUSH Q4H PRN PRN Reason: Nausea/Vomiting Oxycodone/Acetaminophen (Percocet 325-5 Mg) 1 tab PO ONETIME PRN PRN Reason: Pain (moderate 4-6) Oxycodone/Acetaminophen (Percocet 325-5 Mg) 1 tab PO Q4H PRN PRN Reason: Pain (moderate 4-6) Last Admin: 10/31/19 04:02 Dose: 1 tab Documented by: Oxycodone/Acetaminophen (Percocet 325-5 Mg) 2 tab PO Q4H PRN PRN Reason: Pain (moderate 4-6) Oxytocin (Pitocin) 10 unit IM ASDIRECTED PRN PRN Reason: Excessive Vaginal Bleeding Sodium Chloride (Saline Flush) 10 ml FLUSH ASDIRECTED PRN PRN Reason: Keep Vein Open Last Admin: 10/30/19 12:36 Dose: 10 ml Documented by: Sodium Chloride (Saline Flush) 2.5 ml FLUSH ASDIRECTED PRN PRN Reason: Keep Vein Open Sodium Chloride (Normal Saline) 10 ml IV ASDIRECTED PRN PRN Reason: IV Use Sterile Water (Sterile Water For Irrigation) 1,000 ml IRR ASDIRECTED PRN PRN Reason: delivery Terbutaline Sulfate (Brethine) 0.25 mg SUBCUT ASDIRECTED PRN PRN Reason: Tacysystole Discontinued Medications Cefazolin Sodium/Dextrose (Ancef) Confirm Administered Dose 2 gm IV .STK-MED ONE Stop: 10/29/19 11:28 Ephedrine Sulfate (Ephedrine Sulfate) Confirm Administered Dose 50 mg .ROUTE .STK-MED ONE Stop: 10/29/19 11:44 Fentanyl (Sublimaze) 50 mcg IVPUSH Q5M PRN PRN Reason: Pain (severe 7-10) Stop: 10/30/19 12:24 Ketorolac Tromethamine (Toradol) 30 mg IVPUSH Q6H ESAU Stop: 10/30/19 12:31 Last Admin: 10/30/19 12:35 Dose: 30 mg Documented by: Lidocaine (Xylocaine-Mpf 2%) Confirm Administered Dose 15 ml .ROUTE .STK-MED ONE Stop: 10/29/19 11:04 Last Admin: 10/30/19 19:41 Dose: Not Given Documented by: Lidocaine (Xylocaine-Mpf 2%) Confirm Administered Dose 5 ml .ROUTE .STK-MED ONE Stop: 10/29/19 11:26 Last Admin: 10/30/19 19:41 Dose: Not Given Documented by: Misoprostol (Cytotec) 25 mcg PO ONETIME ONE Stop: 10/29/19 10:31 Last Admin: 10/30/19 19:41 Dose: Not Given Documented by: Morphine Sulfate (Duramorph Pf) Confirm Administered Dose 10 mg .ROUTE .STK-MED ONE Stop: 10/29/19 11:29 Nalbuphine HCl (Nubain) 2.5 mg IVPUSH Q3H PRN PRN Reason: Pruritis Stop: 10/30/19 12:25 Oxytocin (Pitocin) Confirm Administered Dose 20 unit .ROUTE .STK-MED ONE Stop: 10/29/19 11:29 Terbutaline Sulfate (Brethine) 0.25 mg SUBCUT ONETIME ONE Stop: 10/29/19 10:01 Last Admin: 10/30/19 19:40 Dose: Not Given Documented by: - Exam General: Reports: Alert, Oriented, Cooperative, No Acute Distress HEENT: Reports: Pupils Equal, Pupils Reactive, Mucous Membr. Moist/[place] Neck: Reports: Supple Lungs: Reports: Clear to Auscultation, Normal Respiratory Effort Cardiovascular: Reports: Regular Rate, Regular Rhythm GI/Abdominal Exam: Normal Bowel Sounds, Soft, Non-Tender, No Organomegaly, No Distention (Female) Exam: Normal External Exam, Enlarged Uterus, Uterine Tenderness, Vaginal Bleeding Rectal (Female) Exam: Deferred Back Exam: Reports: Normal Inspection, Full Range of Motion Extremities: Normal Inspection, Normal Range of Motion, Non-Tender, No Pedal Edema, Normal Capillary Refill Skin: Reports: Warm, Dry, Intact Wound/Incisions: Reports: Dressing Dry and Intact Neurological: Reports: No New Focal Deficit Psy/Mental Status: Reports: Alert, Normal Affect, Normal Mood
[2019-10-31] MEDS: Docusate Sodium 100 MG Cap PO SCH (08:56)
[2019-10-31 11:42] VITALS: BP 118/71; PULSE 77
== END 2019-10-31 15:30 | disposition home or self-care (01) | DRG 540 ==
LOC: MW.OB 07:12
PROVIDERS: ADMIT Obstetrics & Gynecology; ATTEND Obstetrics & Gynecology
PROC: 10D00Z1 Extraction of Products of Conception, Low, Open Approach (ICD-10-PCS; principal; 2019-10-29)
PROC: 10S0XZZ Reposition Products of Conception, External Approach (ICD-10-PCS; 2019-10-29)
DX: O32.1XX0 Maternal care for breech presentation, not applicable or unspecified (principal); O24.420 Gestational diabetes mellitus in childbirth, diet controlled; Z3A.39 39 weeks gestation of pregnancy; Z37.0 Single live birth; Z20.828 Contact with and (suspected) exposure to other viral communicable diseases
CPT/HCPCS: 36415; 59025; 76815; 76815-26; 82962; 85014; 85018; 85027; 86592; 86850; 86900; 86901; A9270-GY; J0690; J1885; J2001; J2270; J2590; J7120; U0002